=== PATIENT | male | born 1955 | race Caucasian/White ===

== ENCOUNTER 2019-04-17 03:06 | Emergency (ER) | payer BC ==
[~2019-04-17] VITALS: Ht 180.3 cm; Wt 99.8 kg
[2019-04-17 03:26] VITALS: Ht 180.3 cm; Wt 99.8 kg
[2019-04-17 06:15] VITALS: BP 140/78
== END 2019-04-17 06:15 | disposition home or self-care (01) ==
LOC: ED 03:06
DX: L02.11 Cutaneous abscess of neck (principal)